=== PATIENT | male | born 1955 | race Caucasian/White ===

== ENCOUNTER 2016-12-18 14:28 | Emergency (ER) | payer BC ==
[2016-12-18 14:44] VITALS: BP 134/76
[2016-12-18] MEDS ORDERED: Diphtheria,Pertussis(Acell),Tetanus Vaccine 0.5 ML SDV IM ONE (15:01)
--- NOTE | 2016-12-18 15:04 | EDM.PDOC ---
ED HPI GENERAL MEDICAL PROBLEM - General Chief Complaint: Upper Extremity Injury/Pain Stated Complaint: fishing hook in the finger [phone] Time Seen by Provider: 12/18/16 15:01 Source of Information: Reports: Patient History Limitations: Reports: No Limitations - History of Present Illness INITIAL COMMENTS - FREE TEXT/NARRATIVE: 61 yo male presents with fish hook to left fourth digit. unable to remove when he tried to pull per patient. three prong hook noted with one prong in finger Onset: Today Duration: Constant Location: Reports: Upper Extremity, Left Quality: Reports: Ache Severity: Mild Improves with: Reports: None Worsens with: Reports: None Associated Symptoms: Reports: No Other Symptoms - Related Data Allergies Allergy/AdvReac Type Severity Reaction Status Date / Time No Known Allergies Allergy Verified 12/18/16 15:18 Home Meds: Home Meds Valsartan 1 tab PO DAILY 12/18/16 [History] Past Medical History HEENT History: Reports: None Cardiovascular History: Reports: Hypertension Respiratory History: Reports: None Gastrointestinal History: Reports: None Genitourinary History: Reports: None Neurological History: Reports: None Psychiatric History: Reports: None Endocrine/Metabolic History: Reports: None Hematologic History: Reports: None Immunologic History: Reports: None Oncologic (Cancer) History: Reports: None Dermatologic History: Reports: None - Past Surgical History Musculoskeletal Surgical History: Reports: Knee Replacement Other Musculoskeletal Surgeries/Procedures:: left Knee Social & Family History - Tobacco Use Smoking Status *Q: Never Smoker Second Hand Smoke Exposure: No Review of Systems - Review of Systems Review Of Systems: ROS reveals no pertinent complaints other than HPI. ED EXAM, GENERAL - Physical Exam Exam: See Below Exam Limited By: No Limitations General Appearance: Alert, WD/WN, No Apparent Distress Respiratory/Chest: No Respiratory Distress, Lungs Clear, Normal Breath Sounds, No Accessory Muscle Use, Chest Non-Tender Cardiovascular: Normal Peripheral Pulses, Regular Rate, Rhythm, No Edema, No Gallop, No JVD, No Murmur, No Rub Extremities: Normal Inspection, Normal Range of Motion, Non-Tender, Normal Capillary Refill, No Pedal Edema Skin Exam: Warm, Dry, Normal Color, No Rash, Other (bleeding controlled, fish hook noted) ED TRAUMA EXTREMITY PROCEDURES - Foreign Body Removal Indication:: Fish hook in left fourth distal digit Consent Obtained: Patient Performing Doctor:: Yessica Vargas Anesthesia Type: Local Anesthesia Other:: 2 cc 1% lidocaine Findings:: Fish hook removed with mild difficulty Complications:: No Course - Vital Signs Last Recorded V/S: Last Vital Signs Temp 97.5 F 12/18/16 14:30 Pulse 81 12/18/16 14:30 Resp 18 12/18/16 14:30 BP 134/76 12/18/16 14:30 Pulse Ox 98 12/18/16 14:30 - Orders/Labs/Meds Orders: Active Orders 24 hr Category Date Time Status Vaccines to be Administered [RC] PER UNIT ROUTINE Care 12/18/16 15:01 Active Hand Comp Min 3V Lt [CR] Urgent Exams 12/18/16 15:00 Taken Meds: Medications Discontinued Medications Generic Name Dose Route Start Last Admin Trade Name Shakir PRN Reason Stop Dose Admin Diphtheria/Tetanus/Acell Pertussis 0.5 ml 12/18/16 15:01 12/18/16 15:21 Adacel IM 12/18/16 15:02 0.5 ml .ONCE ONE Administration - Re-Assessments/Exams Free Text/Narrative Re-Assessment/Exam: 12/18/16 15:57 Finger irrigated. pt tolerated wel. Will treat for potential contamination with pond water. Departure - Departure Time of Disposition: 15:58 Disposition: Home, Self-Care 01 Condition: Good Clinical Impression: Fish hook injury of finger Qualifiers: Encounter type: initial encounter Laterality: left Qualified Code(s): S69.92XA - Unspecified injury of left wrist, hand and finger(s), initial encounter - Discharge Information Instructions: Puncture Wound Forms: ED Department Discharge Additional Instructions: Keep hand clean and ddry. take the antibiotic until complete. follow up with your PCp or in clinic. return for worsening symptoms - My Orders Last 24 Hours: My Active Orders 12/18/16 15:00 Hand Comp Min 3V Lt [CR] Urgent 12/18/16 15:01 Vaccines to be Administered [RC] PER UNIT ROUTINE - Assessment/Plan Last 24 Hours: My Active Orders 12/18/16 15:00 Hand Comp Min 3V Lt [CR] Urgent 12/18/16 15:01 Vaccines to be Administered [RC] PER UNIT ROUTINE
== END 2016-12-18 16:14 | disposition home or self-care (01) ==
LOC: DL.ED 14:28
DX: S60.455A Superficial foreign body of left ring finger, initial encounter (principal); I10 Essential (primary) hypertension; Z96.659 Presence of unspecified artificial knee joint; Z79.899 Other long term (current) drug therapy; W45.8XXA Other foreign body or object entering through skin, initial encounter
CPT/HCPCS: 73140-F3; 90471; 90715; 99283